=== PATIENT | female | born 1970 | race Caucasian/White ===

== ENCOUNTER 2021-07-29 14:46 | Outpatient (REF) | payer OTHER, SELFPAY ==
--- NOTE | ~2021-07-29 | XR_ITS ---
EXAMINATION: XR ELBOW, RIGHT XR ELBOW, LEFT CLINICAL INFORMATION: Chronic bilateral elbow pain. No known trauma. COMPARISON: None TECHNIQUE: Each elbow is imaged separately in 3 views. There are total of 6 views. FINDINGS: Right: No fracture, dislocation, or destructive process. Normal bony mineralization. No intracapsular effusion. There is no joint narrowing or erosive change. Bulky spurring is present at both the medial and lateral epicondyles and the olecranon. Trace spurring coronoid process. There is some faint mineralization in the ligamentous structures on the medial side. Left: No fracture, dislocation, or destructive process. Normal bony mineralization. No intracapsular effusion. No joint narrowing or erosive change. There is bulky spurring from the medial and lateral epicondyles and mild spurring olecranon and coronoid process. XR/XR elbow LT min 3V IMPRESSION: 1. Bilateral bulky spurring medial and lateral epicondyles. 2. Bulky spurring right olecranon, lesser on left. 3. No fracture, dislocation, destructive process, or intracapsular effusion.
--- NOTE | ~2021-07-29 | XR_ITS ---
EXAMINATION: XR ELBOW, RIGHT XR ELBOW, LEFT CLINICAL INFORMATION: Chronic bilateral elbow pain. No known trauma. COMPARISON: None TECHNIQUE: Each elbow is imaged separately in 3 views. There are total of 6 views. FINDINGS: Right: No fracture, dislocation, or destructive process. Normal bony mineralization. No intracapsular effusion. There is no joint narrowing or erosive change. Bulky spurring is present at both the medial and lateral epicondyles and the olecranon. Trace spurring coronoid process. There is some faint mineralization in the ligamentous structures on the medial side. Left: No fracture, dislocation, or destructive process. Normal bony mineralization. No intracapsular effusion. No joint narrowing or erosive change. There is bulky spurring from the medial and lateral epicondyles and mild spurring olecranon and coronoid process. XR/XR elbow RT min 3V IMPRESSION: 1. Bilateral bulky spurring medial and lateral epicondyles. 2. Bulky spurring right olecranon, lesser on left. 3. No fracture, dislocation, destructive process, or intracapsular effusion.
[2021-07-29 17:27] LABS: Sodium 141 mmol/L (135-145)
== END 2021-07-29 14:47 | disposition home or self-care (01) ==
LOC: HO.XRAY 14:46
PROVIDERS: PCP Internal Medicine; Visit Provider Nurse Practitioner Family
DX: Z01.818 Encounter for other preprocedural examination (principal); M79.7 Fibromyalgia; M25.521 Pain in right elbow; M25.522 Pain in left elbow; F17.210 Nicotine dependence, cigarettes, uncomplicated; M17.0 Bilateral primary osteoarthritis of knee; M77.51 Other enthesopathy of right foot and ankle; M47.22 Other spondylosis with radiculopathy, cervical region; M25.462 Effusion, left knee; M47.27 Other spondylosis with radiculopathy, lumbosacral region
CPT/HCPCS: 36415; 73080; 84295; 99202

== ENCOUNTER → 2021-08-29 11:06 | Outpatient (BNVA) | payer OTHER, SELFPAY | PROVIDERS: PCP Internal Medicine; Visit Provider Nurse Practitioner Family | DX: M17.0 Bilateral primary osteoarthritis of knee (principal); M77.51 Other enthesopathy of right foot and ankle; M25.522 Pain in left elbow; M25.521 Pain in right elbow; M79.7 Fibromyalgia; M47.22 Other spondylosis with radiculopathy, cervical region; M47.27 Other spondylosis with radiculopathy, lumbosacral region | CPT/HCPCS: Q3014 ==

== ENCOUNTER 2021-10-27 11:29 | Outpatient (REF) | payer OTHER, SELFPAY ==
--- NOTE | ~2021-10-27 | XR_ITS ---
EXAMINATION: CR X-RAY HAND AND WRIST LEFT CLINICAL INFORMATION: Left hand pain. COMPARISON: None TECHNIQUE: 3 views of the left hand/wrist were obtained. FINDINGS: Moderate first carpometacarpal degenerative joint changes are seen with joint space narrowing, periarticular sclerosis and marginal osteophyte formation. There is no acute fracture or dislocation. The carpal bones are normally aligned. The distal radius and ulna are intact. There is mild soft tissue swelling. XR/XR hand wrist LT IMPRESSION: Moderate first carpal metacarpal degenerative joint changes most consistent with osteoarthritis. No acute abnormality.
== END 2021-10-27 11:30 | disposition home or self-care (01) ==
LOC: HO.XRAY 11:29
PROVIDERS: PCP Internal Medicine; Visit Provider Nurse Practitioner Family
DX: M79.642 Pain in left hand (principal); M17.0 Bilateral primary osteoarthritis of knee; M79.7 Fibromyalgia
CPT/HCPCS: 73110; 73130; 99212

== ENCOUNTER 2021-11-30 08:19 | Outpatient (REF) | payer OTHER, SELFPAY | END 2021-11-30 08:20 | disposition home or self-care (01) | LOC: HO.HOSX 08:19 | PROVIDERS: Visit Provider Orthopaedic Surgery | DX: Z13.89 Encounter for screening for other disorder (principal) ==

== ENCOUNTER 2022-09-28 08:35 | Outpatient (REF) | payer OTHER, SELFPAY ==
--- NOTE | ~2022-09-28 | XR_ITS ---
EXAMINATION: XR SHOULDER, LEFT CLINICAL INFORMATION: Left shoulder pain COMPARISON: None available. TECHNIQUE: AP external rotation, Grashey, scapular Y, and axillary views of the left shoulder. FINDINGS: Moderate acromioclavicular osteoarthritis. Glenohumeral joint is well preserved. No fracture. Alignment is anatomic. Soft tissues are normal with no abnormal calcifications. XR/XR shoulder LT min 2V IMPRESSION: Moderate acromioclavicular osteoarthritis.
== END 2022-09-28 08:36 | disposition home or self-care (01) ==
LOC: HO.XRAY 08:35
PROVIDERS: PCP Internal Medicine; Visit Provider Internal Medicine Rheumatology
DX: M25.512 Pain in left shoulder (principal); M75.82 Other shoulder lesions, left shoulder; M17.0 Bilateral primary osteoarthritis of knee; M47.812 Spondylosis without myelopathy or radiculopathy, cervical region; M47.816 Spondylosis without myelopathy or radiculopathy, lumbar region; M79.7 Fibromyalgia
CPT/HCPCS: 73030; 99202

== ENCOUNTER 2023-06-05 09:40 | Outpatient (AMB) | payer OTHER, SELFPAY ==
--- NOTE | 2023-06-05 09:48 | A.OFFVIS_ITS ---
Intake Vital Signs 3 06/05/23 09:52 Height 5 ft 4 in Weight 207 lb 2 oz BMI 35.5 BP 152/79 H Blood Pressure Location Rt brachial Position Sitting Pulse 84 Pulse Source Pulse Oximeter Pulse Oximetry (%) 99 Oxygen Delivery Method Room Air Intake Visit Reasons: Follow Up/Medication Discussion Intake Note: Pain today 12/25 Child Support Specialist Required: No Accompanied by: Other Relationship Allergies omega-3 acid ethyl esters Adverse Reaction (Unknown, Verified 06/05/23 09:52) stomach upset HPI HPI Comments 2 History of Present Illness0 Details Patient presents today for medication refill. She was last seen in our office on 10/27/21. Patient reports widespread body pain due to fibromyalgia and bilateral knee osteoarthritis. We were planning for diagnostic SNB for potential Sprint PNS placement last year for knee pain. Patient declined diagnostic injections and is hesitant towards any future interventional treatments. She requests refill for naproxen as this has been the most helpful for her arthritis pain. We reviewed her recent labs via patient's [facility] portal, including GFR=63, BUN=12 on 03/05/23. Left knee xray on 08/29/22 showed no evidence of fracture or dislocation, no joint effusion. Thee are minimal degenerative changes in the medial and patellofemoral compartments. Soft tissues are unremarkable. Patient is planning to attend PT soon for knee pain. Denies any recent cough, cold, infection, fever or other significant changes in medical or surgical history since last office visit. PRIOR 10/27/21: Patient presents today for follow up with worsening pain in her bilateral knees and left thumb and hand pain. She denies any recent trauma, injury, or fall. Patient reports previous right carpal tunnel release surgery and left thumb trigger point release with well healed scars. Patient states that [facility] and [facility] for PT has not contacted her for appointment as of today and she has not reached out to them or our office regarding this. She endorses significant bilateral anterior knee pain, right worse than left. Patient states due to fibromyalgia exacerbation and ongoing knees pain, she is unable to start formal PT. Bilateral knee pain with worse with walking, especially stairs walking. Naproxen, rest, ice, elevation, and gentle stretching have been partially helpful. Reports amitriptyline was not refilled for the previous month and states it has been effective without noted side effects. Partial old records received from [facility], knee xray imaging from 2020 is noted below. Denies any fever, malaise, abdominal or groin pain, swelling, weakness, bladder/bowel dysfunction or saddle anesthesia. Ambulates with mildly antalgic gait without assisting devices. Left hand xray obtained today shows moderate first carpal metacarpal degenerative joint changes most consistent with osteoarthritis. No acute abnormality. There is mild soft tissue swelling. PRIOR: Patient presents today via telehealth for review of elbow imaging and records review. She denies any changes since last visit except that her right elbow has been improving with daily Naproxen. Patient also reports improved sleep with amitriptyline with no side effects. She reports she has not started formal PT because no one has contacted her as of yet. Patient was provided with script to [facility] at [place], [place] with directions for her to call and initiate PT. Patient reports she has script at home but asking our office to fax the order to [facility]. Patient continues to report fibromyalgia and multiple joint pain, most concerning right ankle, bilateral elbows and knees, lower back and neck pain. We reviewed her elbows xray today which demonstrated bilateral bulky spurring medial and lateral epicondyles, with bulky spurring right olecranon, lesser on left. No fracture, dislocation, destructive process, or intracapsular effusion. I have ordered Orthopedic referral in [facility] area per patient's request as our location is too far for her. Patient reports she has not heard from Orthopedic office therefore I will resend urgent referral to a [facility] again today. Will resend medical records release request to [facility]/Lashonda Wallace for review of past injections and procedures. [facility] Medical History History of left breast cancer Anxiety and depression Hypothyroid GERD (gastroesophageal reflux disease) Osteoarthritis Paresthesia Tremor Eczema History of herpes zoster Moderate persistent asthma in adult without complication Seasonal allergic rhinitis PLMD (periodic limb movement disorder) Asthma Arthritis Surgical History History of tubal ligation History of cholecystectomy History of carpal tunnel release of both wrists History of lumpectomy of left breast Family History Mother Arthritis Lung cancer Father Diabetes Social History Alcohol intake: never Patient Tobacco Use Status: Current everyday Tobacco user Tobacco use type: Cigarette Cigarettes Per Day: 5 Review of Systems Const All systems reviewed & are unremarkable except as noted in HPI and below Physical Exam Vital Signs: Last Vital Signs Pulse 84 06/05/23 09:52 BP 152/79 H 06/05/23 09:52 Pulse Ox 99 06/05/23 09:52 Oxygen Delivery Method Room Air 06/05/23 09:52 BMI result Body Mass Index 35.5 General: Appears afebrile. Alert and oriented. Mood and affect appropriate. Follows and participates in conversation appropriately. Respiratory effort is unlabored. No cough. No nasal discharge. Able to transition from sit to stand unassisted. Ambulates with bilaterally normal heel strike and toe off. Back/Spine/Pelvis Other: Lumbar extension and extension reproduces mild to moderate pain. Painful facet loading bilaterally. Multiple 16/16 TTP tender points upper and lower extremities, worse in upper and lower back and bilateral knees. Extrem General: Yes capillary refill normal, Yes no clubbing, cyanosis or edema and Yes no calf tenderness Right lower extremity: knee (limited ROM due to pain. NVI. ) Details: tenderness Location: of the medial joint line and crepitus; no swelling, no ecchymosis, no deformity and no unusual warmth Left lower extremity: knee (limited ROM due to pain. NVI. ) Details: tenderness Location: of the patella and of the medial joint line and crepitus; no ecchymosis, no deformity and no unusual warmth Results Reviewed Results Reviewed: Assessment & Plan Assessment & Plan (1) Degenerative arthritis of knee, bilateral: Code(s): M17.0 - Bilateral primary osteoarthritis of knee (2) Bilateral knee pain: Code(s): M25.561 - Pain in right knee; M25.562 - Pain in left knee (3) Fibromyalgia: Code(s): M79.7 - Fibromyalgia (4) Osteoarthritis of lumbar spine: Code(s): M47.816 - Spondylosis without myelopathy or radiculopathy, lumbar region Plan 1. Refills for naproxen and script for lidocaine patches sent today. Recent lab work reviewed with patient. Discussed long-term effects of NSAIDs use. Encouraged adequate hydration, increase daily physical activity as tolerated, weight optimization and good posture. 2. Patient will notify our office after she attends PT for bilateral knee pain to discuss interventional treatments if she will be interested. We briefly reviewed treatments including therapeutic injections, Sprint PNS trial vs genicular RFA. All questions and concerns have been answered and patient agreed with the plan. Follow up as needed. Medications: New 2 lidocaine 5% 2 patches topical DAILY 30 days 60 ea 3RF pain M17.0 - Bilateral primary osteoarthritis of knee, M25.561 - Pain in right knee, M25.562 - Pain in left knee Refilled 2 naproxen 500 mg PO Q12H PRN 60 tabs 3RF pain M19.90 - Unspecified osteoarthritis, unspecified site, M25.561 - Pain in right knee, M25.562 - Pain in left knee, M47.27 - Other spondylosis with radiculopathy, lumbosacral region, M79.642 - Pain in left hand Coding Level of Care Code Est Pt Level 4 (83039) Diagnoses Degenerative arthritis of knee, bilateral M17.0 Bilateral knee pain M25.561; M25.562 Fibromyalgia M79.7 Osteoarthritis of lumbar spine M47.816
[2023-06-05 09:52] VITALS: BP 152/79; PULSE 84; O2SAT 99; BMI 35.5
== END 2023-06-05 10:18 | disposition home or self-care (01) ==
PROVIDERS: PCP Internal Medicine; Visit Provider Nurse Practitioner Family
DX: M17.0 Bilateral primary osteoarthritis of knee (principal); M25.561 Pain in right knee; M25.562 Pain in left knee; M79.7 Fibromyalgia; M47.816 Spondylosis without myelopathy or radiculopathy, lumbar region
CPT/HCPCS: 99214

== ENCOUNTER → 2023-06-05 09:40 | Outpatient (BNVA) | payer OTHER, SELFPAY | PROVIDERS: PCP Internal Medicine; Visit Provider Nurse Practitioner Family | DX: M17.0 Bilateral primary osteoarthritis of knee (principal); M25.561 Pain in right knee; M25.562 Pain in left knee; M79.7 Fibromyalgia; M47.816 Spondylosis without myelopathy or radiculopathy, lumbar region | CPT/HCPCS: 99212 ==

== ENCOUNTER 2025-03-12 10:07 | Outpatient (REF) | payer OTHER, SELFPAY ==
--- NOTE | ~2025-03-12 | XR_ITS ---
EXAMINATION: XR HAND FRANCOIS 3V CLINICAL INFORMATION: M19.041 - Primary osteoarthritis, right hand COMPARISON: None TECHNIQUE: PA, lateral, and Norgaard views of the each hand. FINDINGS: RIGHT HAND: No fracture, dislocation, or suspicious bone lesion. Normal bone mineralization. No periarticular osteopenia is evident. There is normal alignment. There are no subluxations. Moderate arthritic changes are present throughout the PIP and to a lesser degree the DIP joints of the digits, including the interphalangeal joint of the thumb. There is mild associated joint space loss, with some marginal productive bony changes, and questionable very subtle marginal erosions present. There are similar but milder changes involving the first through third MCP joints, with only minimal joint space loss. Moderate to severe degenerative appearing arthritis is present at the first CMC joint. No carpal erosions are evident. There is no gross soft tissue abnormality. LEFT HAND: No fracture, dislocation, or suspicious bone lesion. Normal bone mineralization. No periarticular osteopenia is evident. There is normal alignment. There are no subluxations. Moderate arthritic changes are present throughout the PIP and to a lesser degree the DIP joints of the digits, including the interphalangeal joint of the thumb. There is mild associated joint space loss, with some marginal productive bony changes, and questionable very subtle marginal erosions present. There are similar but milder changes involving the first through third MCP joints, with only minimal joint space loss. Moderate to severe degenerative appearing arthritis is present at the first CMC joint. No carpal erosions are evident. There is no gross soft tissue abnormality. XR/XR Hand Bilat min 3v IMPRESSION: 1. Arthritic findings in both hands as described above, with differential including atypical presentation of degenerative arthritis, primary erosive osteoarthritis, or psoriatic arthritis. Other inflammatory arthritic etiologies not entirely excluded. 2. There is more classical appearing osteoarthritis in the first CMC joints, left greater than right. Electronically signed by: Nick Gregory MD 03/12/2025 11:43 AM EDT
== END 2025-03-12 10:08 | disposition home or self-care (01) ==
LOC: HO.XRAY 10:07
PROVIDERS: PCP Internal Medicine; Visit Provider Nurse Practitioner Family
DX: M47.812 Spondylosis without myelopathy or radiculopathy, cervical region (principal); M47.816 Spondylosis without myelopathy or radiculopathy, lumbar region; M19.041 Primary osteoarthritis, right hand; M19.042 Primary osteoarthritis, left hand; M79.7 Fibromyalgia; M25.50 Pain in unspecified joint
CPT/HCPCS: 73130; 99212

== ENCOUNTER 2025-03-12 10:07 | Outpatient (AMB) | payer OTHER, SELFPAY ==
--- NOTE | 2025-03-12 10:11 | A.OFFVIS_ITS ---
Vital Signs 3 03/12/25 10:15 Height 5 ft 4 in Weight 198 lb 8 oz BMI 34.1 BP 143/74 H Blood Pressure Location Rt brachial Position Sitting Pulse 89 Pulse Source Pulse Oximeter Pulse Oximetry (%) 99 Oxygen Delivery Method Room Air Intake Visit Reasons: MEDICATION DISCUSSION Intake Note: Pain today 8/10 Cell Pourer Required: No Accompanied by: Other Relationship Allergies omega-3 acid ethyl esters Adverse Reaction (Unknown, Verified 03/12/25 10:13) stomach upset HPI Comments Details: The patient is a 55-year-old female presenting with medication management for chronic pain conditions. The patient has a history of fibromyalgia and bilateral knee arthritis, which have been managed with naproxen. She reports that naproxen is effective in managing her pain, and she prefers it over injections or other stimulative or ablative treatments. Patient reports chronic bilateral hand pain due to osteoarthritis and presence of bony deformities in her fingers, worse in both thumbs. Denies any recent joint swelling or redness. The patient reports a pain level of 8 out of 10 in her hands, with pain present in all joints and bony enlargements in the fingers. She also experiences tingling and numbness in her left leg, although not daily. Denies any recent cough, cold, infection, fever or any significant changes in medical history since last office visit. PRIOR 06/05/2023: Patient presents today for medication refill. She was last seen in our office on 10/27/21. Patient reports widespread body pain due to fibromyalgia and bilateral knee osteoarthritis. We were planning for diagnostic SNB for potential Sprint PNS placement last year for knee pain. Patient declined diagnostic injections and is hesitant towards any future interventional treatments. She requests refill for naproxen as this has been the most helpful for her arthritis pain. We reviewed her recent labs via patient's [facility] portal, including GFR=63, BUN=12 on 03/05/23. Left knee xray on 08/29/22 showed no evidence of fracture or dislocation, no joint effusion. Thee are minimal degenerative changes in the medial and patellofemoral compartments. Soft tissues are unremarkable. Patient is planning to attend PT soon for knee pain. Denies any recent cough, cold, infection, fever or other significant changes in medical or surgical history since last office visit. PRIOR 10/27/21: Patient presents today for follow up with worsening pain in her bilateral knees and left thumb and hand pain. She denies any recent trauma, injury, or fall. Patient reports previous right carpal tunnel release surgery and left thumb trigger point release with well healed scars. Patient states that [facility] and [facility] for PT has not contacted her for appointment as of today and she has not reached out to them or our office regarding this. She endorses significant bilateral anterior knee pain, right worse than left. Patient states due to fibromyalgia exacerbation and ongoing knees pain, she is unable to start formal PT. Bilateral knee pain with worse with walking, especially stairs walking. Naproxen, rest, ice, elevation, and gentle stretching have been partially helpful. Reports amitriptyline was not refilled for the previous month and states it has been effective without noted side effects. Partial old records received from [facility], knee xray imaging from 2019 is noted below. Denies any fever, malaise, abdominal or groin pain, swelling, weakness, bladder/bowel dysfunction or saddle anesthesia. Ambulates with mildly antalgic gait without assisting devices. Left hand xray obtained today shows moderate first carpal metacarpal degenerative joint changes most consistent with osteoarthritis. No acute abnormality. There is mild soft tissue swelling. PRIOR: Patient presents today via telehealth for review of elbow imaging and records review. She denies any changes since last visit except that her right elbow has been improving with daily Naproxen. Patient also reports improved sleep with amitriptyline with no side effects. She reports she has not started formal PT because no one has contacted her as of yet. Patient was provided with script to [facility] at [place], [place] with directions for her to call and initiate PT. Patient reports she has script at home but asking our office to fax the order to [facility]. Patient continues to report fibromyalgia and multiple joint pain, most concerning right ankle, bilateral elbows and knees, lower back and neck pain. We reviewed her elbows xray today which demonstrated bilateral bulky spurring medial and lateral epicondyles, with bulky spurring right olecranon, lesser on left. No fracture, dislocation, destructive process, or intracapsular effusion. I have ordered Orthopedic referral in [facility] area per patient's request as our location is too far for her. Patient reports she has not heard from Orthopedic office therefore I will resend urgent referral to a [facility] again today. Will resend medical records release request to [facility]/Lashonda Wallace for review of past injections and procedures. [facility] Medical History History of left breast cancer Anxiety and depression Hypothyroid GERD (gastroesophageal reflux disease) Osteoarthritis Paresthesia Tremor Eczema History of herpes zoster Moderate persistent asthma in adult without complication Seasonal allergic rhinitis PLMD (periodic limb movement disorder) Asthma Arthritis Surgical History History of tubal ligation History of cholecystectomy History of carpal tunnel release of both wrists History of lumpectomy of left breast Family History Mother Arthritis Lung cancer Father Diabetes Social History Alcohol intake: never Patient Tobacco Use Status: Current everyday Tobacco user Tobacco use type: Cigarette Cigarettes Per Day: 5 Review of Systems Const Details: - Musculoskeletal: Reports pain in all joints, bondy enlargement and deformity in fingers, especially thumbs. - Neurological: Reports tingling and numbness in left leg, not daily. All systems reviewed & are unremarkable except as noted in HPI and below Physical Exam Vital Signs: Last Vital Signs Pulse 89 03/12/25 10:15 BP 143/74 H 03/12/25 10:15 Pulse Ox 99 03/12/25 10:15 Oxygen Delivery Method Room Air 03/12/25 10:15 BMI result Body Mass Index 34.1 General: Appears afebrile. Alert and oriented. Mood and affect appropriate. Follows and participates in conversation appropriately. Respiratory effort is unlabored. No cough. No nasal discharge. Able to transition from sit to stand unassisted. Ambulates with bilaterally normal heel strike and toe off. Back/Spine/Pelvis Other: Limited lumbar ROM due to pain. Lumbar extension and extension reproduces mild to moderate pain. Positive facet loading bilaterally. Multiple 16/16 TTP tender points upper and lower extremities, worse in upper and lower back and bilateral knees. Cervical Spine: cervical ROM normal, cervical muscular tenderness, No Cervical spine tenderness and No step off deformity Thoracic/Lumbar Spine: thoracic and lumbar spine normal to inspection, No Thoracic/lumbar spine scar(s), Lasegue's sign negative, straight leg raise negative bilaterally, pain with thoraco-lumbar ROM, thoraco-lumbar ROM limited, No thoracic spinal tenderness and No lumbar spinal tenderness Sacroiliac joints: bilaterally tender to palpation Extrem General: Yes capillary refill normal, No no joint enlargement (bilateral hand TTP with joint enlargement to fingers and thumbs, left>right), Yes no clubbing, cyanosis or edema, Yes no calf tenderness and Yes normal gait Right upper extremity: Extremity exam: right hand Results Reviewed Results Reviewed: XR HAND FRANCOIS 3V 03/12/25 CLINICAL INFORMATION: M19.041 - Primary osteoarthritis, right hand COMPARISON: None TECHNIQUE: PA, lateral, and [place] views of the each hand. FINDINGS: RIGHT HAND: No fracture, dislocation, or suspicious bone lesion. Normal bone mineralization. No periarticular osteopenia is evident. There is normal alignment. There are no subluxations. Moderate arthritic changes are present throughout the PIP and to a lesser degree the DIP joints of the digits, including the interphalangeal joint of the thumb. There is mild associated joint space loss, with some marginal productive bony changes, and questionable very subtle marginal erosions present. There are similar but milder changes involving the first through third MCP joints, with only minimal joint space loss. Moderate to severe degenerative appearing arthritis is present at the first CMC joint. No carpal erosions are evident. There is no gross soft tissue abnormality. LEFT HAND: No fracture, dislocation, or suspicious bone lesion. Normal bone mineralization. No periarticular osteopenia is evident. There is normal alignment. There are no subluxations. Moderate arthritic changes are present throughout the PIP and to a lesser degree the DIP joints of the digits, including the interphalangeal joint of the thumb. There is mild associated joint space loss, with some marginal productive bony changes, and questionable very subtle marginal erosions present. There are similar but milder changes involving the first through third MCP joints, with only minimal joint space loss. Moderate to severe degenerative appearing arthritis is present at the first CMC joint. No carpal erosions are evident. There is no gross soft tissue abnormality. IMPRESSION: 1. Arthritic findings in both hands as described above, with differential including atypical presentation of degenerative arthritis, primary erosive osteoarthritis, or psoriatic arthritis. Other inflammatory arthritic etiologies not entirely excluded. 2. There is more classical appearing osteoarthritis in the first CMC joints, left greater than right. Assessment & Plan Assessment & Plan (1) Polyarthralgia: Code(s): M25.50 - Pain in unspecified joint Category: Medical (2) Bilateral hand pain: Code(s): M79.641 - Pain in right hand; M79.642 - Pain in left hand Category: Medical (3) Osteoarthritis of hands, bilateral: Code(s): M19.041 - Primary osteoarthritis, right hand; M19.042 - Primary osteoarthritis, left hand Category: Medical (4) Cervical osteoarthritis: Code(s): M47.812 - Spondylosis without myelopathy or radiculopathy, cervical region Category: Medical (5) Osteoarthritis of lumbar spine: Code(s): M47.816 - Spondylosis without myelopathy or radiculopathy, lumbar region Category: Medical (6) Fibromyalgia: Code(s): M79.7 - Fibromyalgia Category: Medical Plan The plan includes continuing the use of naproxen for pain management, as it has been effective for the patient. Medical release request sent to [facility] and PCP office to review lab work prior refill for naproxen. A referral to Rheumatology is recommended to further evaluate the possibility of degenerative arthritis and to conduct specialized blood work. An x-ray of the hands was conducted after today's visit and is noted above. All questions and concerns have been answered and patient agreed with the treatment plan. Follow up as needed. Patient was informed and verbally consented to the use of an ambient scribe for clinic note documentation during this visit. Orders: Orders 2 XR Hand Bilat min 3v Today M19.041 - Primary osteoarthritis, right hand, M19.042 - Primary osteoarthritis, left hand, M25.50 - Pain in unspecified joint Referrals 2 Rheumatology Referral M19.041 - Primary osteoarthritis, right hand, M19.042 - Primary osteoarthritis, left hand, M25.50 - Pain in unspecified joint, M79.641 - Pain in right hand, M79.642 - Pain in left hand Coding Level of Care Code Est Pt Level 4 (21544) Complex EM visit Add On G2211 Diagnoses Polyarthralgia M25.50 Bilateral hand pain M79.641; M79.642 Osteoarthritis of hands, bilateral M19.041; M19.042 Cervical osteoarthritis M47.812 Osteoarthritis of lumbar spine M47.816 Fibromyalgia M79.7
[2025-03-12 10:15] VITALS: BP 143/74; PULSE 89; O2SAT 99; BMI 34.1
--- OUTSIDE RECORDS SUMMARY | 2025-03-12 12:20 | XMS_ITS | Clinical Summary ---
[facility] [address] [facility] Address [address] [place] [address] Phone Care Team Providers Care Business Services Representative Name Role Phone Karo Lopez MD Primary Care Provider [phone] Allergies Active Allergy Reactions Criticality Noted Date Comments Douglas 3 Nausea And Vomiting High 09/09/2021 Douglas-3 Acid Ethyl Esters Unknown Low 04/23/2022 Medications cetirizine (ZyrTEC) 10 mg tablet Take 1 tablet (10 mg total) by mouth. Active cholecalcifero l (VITAMIN D-3) 50 mcg (2,000 unit) capsule Take 50 mcg by mouth. Active LORazepam (ATIVAN) 0.5 mg tablet Take one tablet 30 minutes prior to flight 01/02/20 23 Active sertraline (ZOLOFT) 100 mg tablet Take 1 tablet (100 mg total) by mouth 1 (one) time each day. 07/05/19 24 Active amLODIPine (NORVASC) 5 mg tablet TAKE 1 TABLET(5 MG) BY MOUTH 1 TIME EACH DAY 90 tablet 1 09/23/19 25 Active cholecalcifero l (VITAMIN D-3) 50 mcg (2,000 unit) tablet TAKE 1 TABLET BY MOUTH DAILY 90 tablet 1 10/22/19 25 Active capsaicin (ZOSTRIX) 0.025 % cream Apply 1 Application topically 2 (two) times a day. apply to the affected area(s) 11/16/19 25 Active naproxen (NAPROSYN) 500 mg tablet Take 1 tablet (500 mg total) by mouth every 12 (twelve) hours if needed. for pain Active esomeprazole (NexIUM) [address] capsule Take 1 capsule (20 mg total) by mouth 2 (two) times a day before meals. 180 capsule 1 11/20/19 25 Active cyanocobalamin (VITAMIN B-12) 1,000 mcg tabletIndicati ons:B12 deficiency Take 1 tablet (1,000 mcg total) by mouth 1 (one) time each day. 30 each 2 11/24/19 25 026 Active fluticasone HFA (FLOVENT HFA) 110 mcg/actuation inhaler INHALE 1 PUFF INTO THE LUNGS TWICE DAILY 12 g 5 12/30/19 25 Active fluticasone propionate (FLONASE) 50 mcg/actuation nasal spray SHAKE LIQUID AND USE 1 SPRAY IN EACH NOSTRIL 1 TIME EACH DAY 16 g 3 01/10/20 25 Active levothyroxine (SYNTHROID, LEVOTHROID) 150 mcg tablet Take 1 tablet daily from Sunday to Sunday but take 1-1/2 tablets on Sunday. 96 tablet 1 01/28/20 25 Active montelukast (SINGULAIR) 10 mg tablet Take 1 tablet (10 mg total) by mouth at bedtime. 90 tablet 1 01/28/20 25 Active albuterol HFA (Ventolin HFA) 90 mcg/actuation inhaler Inhale 2 puffs by mouth every 4 (four) hours if needed for wheezing. 6.7 g 1 01/28/20 25 Active albuterol 2.5 mg /3 mL (0.083 %) nebulizer solution Take 1 Vial by nebulization every 6 hours as needed for Wheezing. - Nebulization 150 mL 1 01/28/20 25 Active Trulance 3 mg tablet TAKE 1 TABLET BY MOUTH DAILY 30 tablet 2 02/26/20 25 Active pravastatin (PRAVACHOL) 80 mg tablet TAKE 1 TABLET(80 MG) BY MOUTH 1 TIME EACH DAY 90 tablet 02/26/20 25 Active pravastatin (PRAVACHOL) 80 mg tablet Take 1 tablet (80 mg total) by mouth 1 (one) time each day. 90 tablet 1 11/20/19 25 025 Discontinued Trulance 3 mg tablet TAKE 1 TABLET BY MOUTH DAILY 30 tablet 3 11/26/19 25 025 Discontinued Active Problems Problem Noted Date Diagnosed Date Primary hypertension 05/14/2023 Assessment & Plan (11/19/2024 1:35 PM EDT): Follow low-sodium diet. She is compliant with her amlodipine. Orders: Comprehensive metabolic panel; Future CBC and differential; Future Adenomatous polyp of transverse colon 03/05/2023 Uveitis 04/06/2022 Assessment & Plan (11/19/2024 1:35 PM EDT): Advised her to make sure she books a follow-up with ophthalmology. Assessment & Plan (07/08/2024 1:23 PM EST): She followed up with ophthalmology and has follow up appointment tomorrow. History of COVID-19 07/15/2021 Overview (08/16/2023): 06/03/21 - tested at urgent care Fibromyalgia 01/01/2020 Moderate persistent asthma without complication 01/01/2020 Sebaceous cyst of breast, left 12/02/2018 PLMD (periodic limb movement disorder) 8 Overview (08/16/2023): 09/2017 diagnostic sleep study reports plmd Snoring 02/23/2017 Overview (08/16/2023): 02/13/2017 Home Sleep Study did not reveal sleep apnea. 09/2017 Diagnostic sleep study did not reveal sleep apnea but + PLMD noted. Eczema 05/24/2016 GERD (gastroesophageal reflux disease) 6 Hyperlipidemia 05/24/2016 Assessment & Plan (11/19/2024 1:35 PM EDT): Follow low-cholesterol diet. Continue pravastatin. Assessment & Plan (07/08/2024 1:34 PM EST): Follow low-cholesterol diet. Continue current above pravastatin. Osteoarthritis 05/24/2016 Overview (08/16/2023): Hands, right hip, right knee Paresthesia 05/24/2016 Tremor 05/24/2016 Anxiety and depression 04/24/2016 Carpal tunnel syndrome, bilateral 04/24/2016 Hypothyroid 04/24/2016 Assessment & Plan (11/19/2024 1:35 PM EDT): Advised her to be compliant with her levothyroxine. Assessment & Plan (07/08/2024 1:34 PM EST): Levothyroxine dose adjusted. Will recheck thyroid levels in 6 weeks. Seasonal allergic rhinitis 04/24/2016 Immunizations Name Administration Dates Next Due Influenza Quadravalent, 0.5m l (Fluzone High-dose) 65yo and older 02/17/2016 Influenza Quadravalent, MDCK , 0.5ml, preservative free (Flucelvax) 6mo and older 03/05/2023,04/07/2022,04/01/2021 Influenza Quadravalent, MDCK , 0.5ml, with preservative (Flucelvax) 6mo and older 03/30/2017 Influenza Quadrivalent, 0.5m l, preservative free (Fluarix; FluLaval; Fluzone) ages 6mo and older (Afluria) 3yo and older 03/10/2018,02/28/2016 PPD Test 10/23/2016 Pneumococcal polysaccharide 23 valent (Pneumovax 23) 2yo and older 12/07/2016,01/05/2014 Tdap Tetanus diptheria acell ular pertussis (Boostrix; Adacel) 7yo and older 07/25/2016 Surgical History Surgery Date Site/Laterality Comments CHOLECYSTECTOMY 1996 PROCEDURE: HISTORICAL CHOLECYSTECTOMY CARPAL TUNNEL RELEASE 2005 Right PROCEDURE: HISTORICAL CARPAL TUNNEL REL TUBAL LIGATION PROCEDURE: HISTORICAL TUBAL LIGATION OTHER SURGICAL HISTORY PROCEDURE: ---- OTHER ----; COMMENT: left axilla cystectomy BREAST LUMPECTOMY 07/2009 Left PROCEDURE: HISTORICAL BREAST LUMPECTOMY BREAST BIOPSY PROCEDURE: BX BREAST; PERC NEEDLE CORE W/IMAG GUID; COMMENT: lt breast ca Medical History Medical History Date Comments History of breast cancer 04/24/2016 DX:Hist ory of breast cancer; COMMENT: DCIS- left Mild intermittent asthma 04/24/2016 DX:Mild intermittent asthma Hypothyroid 04/24/2016 DX:Hypothyroid Anxiety and depression 04/24/2016 DX:Anxiet y and depression Seasonal allergic rhinitis 04/24/2016 DX:Se asonal allergic rhinitis Carpal tunnel syndrome, bilateral 04/24/2016 DX:Carpal tunnel syndrome, bilateral History of herpes zoster 05/24/2016 DX:Hist ory of herpes zoster; COMMENT: Left chest Hyperlipidemia 05/24/2016 DX:Hyperlipidemi a LEE positive 05/24/2016 DX:LEE positive Eczema 05/24/2016 DX:Eczema Tremor 05/24/2016 DX:Tremor Paresthesia 05/24/2016 DX:Paresthesia Osteoarthritis 05/24/2016 DX:Osteoarthriti s; COMMENT: Hands, right hip, right knee GERD (gastroesophageal reflux disease) 6 DX:GERD (gastroesophageal reflux disease) Hypothyroid DX:Hypothyroid Personal history of malignan t neoplasm of breast DX:Personal history of malig nant neoplasm of breast; COMMENT: DCIS 2009, lt Uveitis 04/06/2022 DX:Uveitis Adenomatous polyp of transverse colon 03/05/2023 DX:Adenomatous polyp of transverse colon Essential (primary) hypertension DX:Essential (primary) hypertension Family History Medical History Relation Name Comments Diabetes Father HTN Hypertension Father Lung cancer Mother age 60 Hypertension Paternal Grandmother DM /str brennan Thyroid disease Sister 1 Breast cancer Neg Hx Relation Name Status Comments Brother Alive 3 Father Alive Mother Paternal Grandmother Sister 1 Alive Sister 2 Alive 3 Son 1 Wayne Alive Son 2 Duncan Alive Social History Tobacco Use Types Packs/Day Years Used Date Smoking Tobacco: Every Day Cigarettes Smokeless Tobacco: Never Tobacco Cessation:Ready to Q uit: Not Asked; Counseling Given: Not Answered Alcohol Use Standard Drinks/Week Comments No 0 (1 standard drink = 0.6 oz pur e alcohol) Housing Instability Answer Date Recorde d Are you worried that in the next 2 months you may not have stable housing? No 07/04/2024 Food Access & Nutrition Answer Date Rec orded Do you have access to a vari ety of food including fruits and vegetables? No 07/04/2024 Access to Healthcare Answer Date Record ed Within the last 3 months, nette worthy many times did you visit the emergency department for your medical care? 0 07/04/2024 Health Literacy Answer Date Recorded How often do you need to hav e someone help you when you read instructions, pamphlets, or other written material from your doctor or pharmacy? Sometimes 07/04/2024 Caregiver: How often do you need to have someone help you when you read instructions, pamphlets, or other written material from your doctor or pharmacy? Not on file 07/04/2024 Financial Risk Answer Date Recorded How hard is it for you to pa y for the very basics like food, housing, medical care, and air conditioning / heating? Somewhat hard 07/04/2024 Transportation Answer Date Recorded Has the lack of transportati on kept you from meetings, work, or from getting things needed for daily living? No Has the lack of transportati on kept you from medical appointments or from getting medications? No 07/04/2024 Social Isolation Answer Date Recorded How often do you feel lonely or isolated from those around you? Sometimes 07/04/2024 Food Risk Answer Date Recorded Within the past 12 months we worried whether our food would run out before we got money to buy more. Often true 07/04/2024 Within the past 12 months th e food we bought just didn't last and we didn't have money to get more. Never true 07/04/2024 Dependent Care Answer Date Recorded Do you need help finding or paying for care for your loved ones. For example, special needs child caregiver or elderly care for an older adult? Yes 07/04/2024 Education Answer Date Recorded Do you think completing more education or training, like finishing a GED, going to college, or learning a trade, would be helpful for you? No 07/04/2024 Employment and Income Answer Date Recor ded During the last four weeks, have you been actively looking for work? No 07/04/2024 Living Situation Answer Date Recorded What is your living situation? 0 07/04/2024 Comments No Sex and Gender Information Value Date Recorded Sex Assigned at Not on file Legal Sex Female 6:14 PM EST Gender Identity Not on file Sexual Orientation Not on file Obstetrics History Last Filed Vital Signs Vital Sign Reading Time Taken Comments Blood Pressure 124/82 11/19/2024 1:13 PM EDT Pulse 92 11/19/2024 1:13 PM EDT Temperature - - Respiratory Rate - - Oxygen Saturation - - Inhaled Oxygen Concentration - - Weight 96.4 kg (212 lb 9.6 oz) 11/19/2024 1:13 P M EDT Height 162.6 cm (5' 4 ) 11/19/2024 1:13 PM EDT Body Mass Index 36.49 11/19/2024 1:13 PM EDT Plan of Treatment Upcoming Encounters Date Type Department Care Team (Late st Contact Info) Description 03/13/2025 1:20 PM EDT Appointment Radiology Department - [address] [phone] 04/20/2025 10:30 AM EST Office Visit Internal Medicine - [address] [phone] Jannie Hernandes, JULIUS [address] [place] [address] Health Maintenance Due Date Last Done Comments Hepatitis B Vaccines (1 of 3 - 19+ 3-dose series) 02/20/1987 Zoster Vaccines (1 of 2) 02/20/1987 Cervical Cancer Screening: Pap Smear 02/20/1989 Pneumococcal Vaccine: 50+ Years (2 of 2 - PCV) 12/07/2017 12/07/2016, 01/05/2014 HIV Screening 05/27/2022 Medicare Annual Wellness Visit 05/27/2022 COVID-19 Vaccine ( season) 2025 03/12/2023, 02/28/2022, 09/15/2021 Influenza Vaccine (#1) 2025 , 04/07/2022, 04/01/2021, Additional history exists Social Influencers of Health Screening 07/04/2025 07/04/2024 Breast Cancer Screening 02/18/2026 02/19/20 24, 02/19/2024, 01/09/2022, Additional history exists Hypertension/CHF/CAD Annual BMP Blood Test 03/04/2026 03/04/2025, 11/19/2024 DTaP,Tdap,and Td Vaccines (2 - Td or Tdap) 07/25/2026 07/25/2016 Colorectal Cancer Screening: Colonoscopy 11/22/2027 11/21/2022 Cholesterol Screening (Lipid Panel) 07/04/2029 07/04/2024, 10/22/2023, 10/22/2023 RSV Immunization Adult Patients (1 - 1-dose 75+ series) 02/20/2043 Hepatitis C Screening Completed 12/09/2018 Depression Screening Completed 07/04/2024 HIB Vaccines Aged Out No longer eligi ble based on patient's age to complete this topic HPV Vaccines Aged Out No longer eligi ble based on patient's age to complete this topic Hepatitis A Vaccines Aged Out No long er eligible based on patient's age to complete this topic IPV Vaccines Aged Out No longer eligi ble based on patient's age to complete this topic MMR Vaccines Aged Out No longer eligi ble based on patient's age to complete this topic Meningococcal ACWY Vaccine Aged Out N o longer eligible based on patient's age to complete this topic Meningococcal B Vaccine Aged Out No l onger eligible based on patient's age to complete this topic RSV Immunization Patients Under 20 months Aged Out No longer eligible based on patient's age to complete this topic Varicella Vaccines Aged Out No longer eligible based on patient's age to complete this topic Procedures Procedure Name Priority Date/Time Associated Diagnosis Comments THYROID STIMULATING HORMONE WITH REFLEX TO FREE T4 AND FREE T3 Routine 03/04/2025 2:27 PM EDT Hypothyroidism, unspecified type BASIC METABOLIC PANEL Routine 03/04/2025 2:27 PM EDT SHERRY (acute kidney injury) (CMS/HCC V24) VITAMIN B12 Routine 03/04/2025 2:27 PM EDT B12 deficiency LIPID PANEL WITH REFLEX TO DIRECT LDL Routine 07/04/2024 9:04 AM EST Myxedema heart disease Mixed hyperlipidemia SCREENING MAMMOGRAPHY BI 2-VIEW BREAST INC CAD Routine 02/19/2024 9:20 AM EDT Encounter for screening mammogram for malignant neoplasm of breast COLONOSCOPY Routine 11/21/2022 HEPATITIS C SCREENING Routine 12/09/2018 from Last 3 Months or Most Recently Relevant to Health Maintenance Results * Thyroid stimulating hormone with reflex to free t4 and free t3 (03/04/2025 2:27 PM EDT) [facility] TSH 2.16 0.40 - 4.00 mcIU/mL LAB CHEMISTRY METHOD 03/04/2025 7:50 PM EDT [facility] Blood Venous blood specimen / Unknown Venipuncture / Unknown 03/04/2025 2:27 PM EDT 03/04/2025 2:27 PM EDT Luigi Miles MD LAB BLOOD ORDERABLES Elisa l Result Performing Organization Address [facility]/ZIP Co de Phone Number [facility] [address] [place] [address], [place] [phone] * Vitamin B12 (03/04/2025 2:27 PM EDT) [facility] Vitamin B-12 263 250 - 900 pcg/mL LAB CHEMISTRY METHOD 03/04/2025 6:58 PM EDT [facility] Blood Venous blood specimen / Unknown Venipuncture / Unknown 03/04/2025 2:27 PM EDT 03/04/2025 2:27 PM EDT Luigi Miles MD LAB BLOOD ORDERABLES Elisa l Result [facility] [address] [place] [address], [place] [phone] * Basic metabolic panel (03/04/2025 2:27 PM EDT) [facility] Sodium 138 133 - 145 mmol/L LAB CHEMISTRY METHOD 03/04/2025 6:35 PM EDT [facility] Potassium 3.7 3.5 - 5.5 mmol/L LAB CHEMISTRY METHOD 03/04/2025 6:35 PM EDT [facility] Chloride 106 96 - 110 mmol/L LAB CHEMISTRY METHOD 03/04/2025 6:35 PM [facility] CO2 26 21 - 32 mmol/L LAB CHEMISTRY METHOD 03/04/2025 6:35 PM [facility] Anion Gap 6 3 - 11 LAB CHEMISTRY METHOD 03/04/2025 6:35 PM [facility] Glucose 82 70 - 100 mg/dL LAB CHEMISTRY METHOD 03/04/2025 6:35 PM [facility] BUN 12 5 - 25 mg/dL LAB CHEMISTRY METHOD 03/04/2025 6:35 PM [facility] Creatinine 0.87 0.50 - 1.10 mg/dL LAB CHEMISTRY METHOD 03/04/2025 6:35 PM [facility] eGFR 78 >=60 mL/min/1. 73m2 LAB CHEMISTRY METHOD 03/04/2025 6:35 PM T [facility] Comment:Calculation based on the Chronic Kidney Disease Epidemiology Collaboration (CKD-EPI) equation refit without adjustment for race. BUN/Creatinine Ratio 13.8 LAB CHEMISTRY METHOD 03/04/2025 6:35 PM [facility] Calcium 8.9 8.5 - 10.5 mg/dL LAB CHEMISTRY METHOD 03/04/2025 6:35 PM T [facility] Blood Venous blood specimen / Unknown Venipuncture / Unknown 03/04/2025 2:27 PM EDT 03/04/2025 2:27 PM EDT us Luigi Miles MD LAB BLOOD ORDERABLES Elisa licona Result [facility] [address] [place] [address], * (ABNORMAL) Lipid panel with reflex to direct LDL (07/04/2024 9:04 AM EST) Cholesterol 148 0 - 200 mg/dL LAB CHEMISTRY METHOD 07/04/2024 1:14 PM [facility] Triglycerides 175(H) 0 - 150 mg/dL LAB CHEMISTRY METHOD 07/04/2024 1:14 PM [facility] HDL 40 >=40 mg/dL LAB CHEMISTRY METHOD 07/04/2024 1:14 PM [facility] LDL Calculated 73 0 - 100 mg/dL LAB CHEMISTRY METHOD 07/04/2024 1:14 PM [facility] VLDL Cholesterol Josh 35 mg/dL LAB CHEMISTRY METHOD 07/04/2024 1:14 PM [facility] Non HDL Chol. (LDL+VLDL) 108 <145 mg/dL LAB CHEMISTRY METHOD 07/04/2024 1:14 PM [facility] Chol/HDL Ratio 3.7 0.0 - 4.4 LAB CHEMISTRY METHOD 07/04/2024 1:14 PM [facility] Blood Venous blood specimen / Unknown Venipuncture / Unknown 07/04/2024 9:04 AM EST 07/04/2024 9:04 AM EST Luigi Miles MD LAB BLOOD ORDERABLES Elisa l Result [facility] [address] [place] [address], * SCREENING MAMMOGRAPHY BI 2-VIEW BREAST INC CAD (02/19/2024 9:20 AM EDT) Anatomical Region Laterality Modality Radiographic Carlota ging 02/14/2024 4:01 PM EDT Narrative 02/19/2024 8:44 PM EDT This is a summary report. The complete report is available in the patient's medical record. If you cannot access the medical record, please contact the sending organization for a detailed fax or copy. Exam: Screening mammogram Findings: Digital bilateral full-field screening mammography is performed with tomosynthesis and interpreted with the aid of computer-aided detection. Comparison is made with 01/09/2022 and 09/28/2020. Status post left breast lumpectomy for DCIS in 2009. Breast parenchyma is composed of scattered fibroglandular densities. Stable lumpectomy changes with surgical clips in the outer left breast. Chronic skin lesion at the lower inner left breast. No new suspicious mass, architectural distortion, or suspicious calcifications. Impression: No mammographic evidence of malignancy. BI-RADS 2-benign Procedure Note Romy Lozano MD - 04/02/2024 This is a summary report. The complete report is available in thepatient's medical record. If you cannot access the medical record, pleasecontact the sending organization for a detailed fax or copy. Exam: Screening mammogram Findings: Digital bilateral full-field screening mammography is performedwith tomosynthesis and interpreted with the aid of computer-aideddetection. Comparison is made with 01/09/2022 and 09/28/2020. Status postleft breast lumpectomy for DCIS in 2009. Breast parenchyma is composed of scattered fibroglandular densities.Stable lumpectomy changes with surgical clips in the outer left breast.Chronic skin lesion at the lower inner left breast. No new suspiciousmass, architectural distortion, or suspicious calcifications. Impression: No mammographic evidence of malignancy. BI-RADS 2-benign Luigi Miles MD IMG XR PROCEDURES Final R esult * Colonoscopy (11/21/2022) Pathologist [facility] Colonoscopy normal Anatomical Region Laterality Modality Other Historical Provider HEALTH MAINTENANCE Final Result * Hepatitis C Screening (12/09/2018) Pathologist [facility] Hepatitis C Screening negative Historical Provider HEALTH MAINTENANCE Final Result from Last 3 Months or Most Recently Relevant to Health Maintenance Insurance [employer] Member Subscriber Plan / Payer (Ef fective 2018-Present) Name:RACHELLE MARTINEZ Relation to Subscriber:Self Name:Rachelle Martinez Payer ID:[id number] Group ID:[id number] Type:Not on file Address: [place] [address] [address] [id number] Care Teams Business Services Representative Relationship Specialty Start Date End Date Karo Lopez MD [address] [place] [address] PCP - General Internal Medicine 01/16/25
== END 2025-03-12 10:30 | disposition home or self-care (01) ==
LOC: HO.PMC 10:08
PROVIDERS: PCP Internal Medicine; Visit Provider Nurse Practitioner Family
DX: M25.50 Pain in unspecified joint (principal); M79.641 Pain in right hand; M79.642 Pain in left hand; M19.041 Primary osteoarthritis, right hand; M19.042 Primary osteoarthritis, left hand; M47.812 Spondylosis without myelopathy or radiculopathy, cervical region; M47.816 Spondylosis without myelopathy or radiculopathy, lumbar region; M79.7 Fibromyalgia
CPT/HCPCS: 99214; G2211

== ENCOUNTER → 2025-03-12 10:49 | Outpatient (BNV) | payer OTHER, SELFPAY | PROVIDERS: PCP Internal Medicine; Visit Provider Radiology Diagnostic Radiology | DX: M19.041 Primary osteoarthritis, right hand (principal); M19.042 Primary osteoarthritis, left hand | CPT/HCPCS: 73130 ==